=== PATIENT | female | born 1990 | race Caucasian/White ===

== ENCOUNTER 2017-11-27 22:45 | Emergency (ER) | payer BC ==
[2017-11-27] MEDS ORDERED: NS 1,000 ML IV ONE (23:08)
[2017-11-27 23:21] LABS: PLATELET COUNT 174 10^3/uL (150-400)
[2017-11-27] MEDS ORDERED: PROMETHAZINE HCL 25 MG/ML INJ IVP ONE (23:42)
[2017-11-27] MEDS ORDERED: LORazepam 2 MG/ML INJ IVP ONE (23:43)
--- NOTE | 2017-11-28 00:05 | EDPHY ---
H & P Time Seen by Provider: 11/27/17 23:06 HPI/ROS: CHIEF COMPLAINT: Vomiting HISTORY OF PRESENT ILLNESS: 27-year-old female presents to the emergency department with multiple episodes of vomiting. The patient woke up this morning at 3:00 a.m. With vomiting. She is here visiting for a wedding. She states that she has had these symptoms in the past and is typically received Compazine and Ativan. She denies abdominal pain. She does describe a mild headache. She has been told that she has "abdominal migraines". No fevers or chills. No urinary symptoms. She is currently on her menstrual period and denies . Denies chest pain or difficulty breathing. Denies abdominal pain. REVIEW OF SYSTEMS: Constitutional: No fever, no chills. Eyes: No double or blurry vision. ENT: No sore throat. Respiratory: No cough, no shortness of breath. Cardiac: No chest pain. Gastrointestinal: Vomiting as above. No abdominal pain or diarrhea. Genitourinary: No dysuria. Musculoskeletal: No neck or back pain. Skin: No rashes. Neurological: No headache. Past Medical/Surgical History: Vick's thyroiditis Social History: Visiting from [place] Smoking Status: Never smoked Physical Exam: General Appearance: Alert, no distress. Eyes: Pupils equal and round. Extraocular motions are all intact. ENT: Mouth: Mucous membranes moist. Respiratory: No wheezing, rhonchi, or rales, lungs are clear to auscultation. Cardiovascular: Regular rate and rhythm. Gastrointestinal: Abdomen is soft and nontender, no masses, no rebound or guarding, bowel sounds normal. Neurological: Alert and oriented x 3, cranial nerves II through XII grossly intact Skin: Warm and dry, no rashes. Musculoskeletal: Nontender to palpate along the cervical, thoracic or lumbar spine. Neck is supple. Extremities: Full range of motion and no peripheral edema. Psychiatric: Patient is oriented X 3, there is no agitation. Constitutional: Initial Vital Signs Temperature (C) 36.9 C 11/27/17 22:54 Heart Rate 85 11/27/17 22:54 Respiratory Rate 20 11/27/17 22:54 Blood Pressure 118/68 11/27/17 22:54 O2 Sat (%) 94 11/27/17 22:54 O2 Delivery Mode Room Air Allergies/Adverse Reactions: arythromycin Allergy (Uncoded 11/27/17 22:58) Home Medications: Medication Instructions Recorded ARMOUR THYROID 11/27/17 Medical Decision Making ED Course/Re-evaluation: 27-year-old female presents to the emergency department feeling anxious and having multiple episodes of vomiting. Laboratory studies were drawn and laboratory studies were all within normal limits. Since the patient had been given Compazine and Ativan in the past, she was given 12.5 mg of IV Phenergan and 0.5 mg of IV Ativan. 12:25 a.m. the patient was feeling extremely anxious after the medication. This is likely from the IV Phenergan. She was given 25 mg of IV Benadryl. She had no respiratory or airway involvement. 12:55 a.m. the patient was still feeling "like I want to use crawl out of my skin". The patient was given an additional 1 mg of IV Ativan. She states her nausea is better. Differential Diagnosis: Including but not limited to dehydration, electrolyte abnormality, bowel obstruction, gastritis, GERD, medication reaction Care Turn Over: Care will be turned over to Dr. Philip Galdamez for disposition and plan. - Data Points Laboratory Results: Laboratory Results 11/27/17 23:10 11/27/17 23:10 11/27/17 11/27/17 11/27/17 23:10 23:10 23:10 WBC 10.62 10^3/uL H 10^3/uL (3.80-9.50) RBC 4.67 10^6/uL 10^6/uL (4.18-5.33) Hgb 13.1 g/dL g/dL (12.6-16.3) Hct 40.5 % % (38.0-47.0) MCV 86.7 fL fL (81.5-99.8) MCH 28.1 pg pg (27.9-34.1) MCHC 32.3 g/dL L g/dL (32.4-36.7) RDW 13.7 % % (11.5-15.2) Plt Count 174 10^3/uL 10^3/uL (150-400) MPV 12.3 fL H fL (8.7-11.7) Neut % (Auto) 66.9 % % (39.3-74.2) Lymph % (Auto) 21.6 % % (15.0-45.0) [place] % (Auto) 8.7 % % (4.5-13.0) Eos % (Auto) 2.0 % % (0.6-7.6) Baso % (Auto) 0.5 % % (0.3-1.7) Nucleat RBC Rel Count 0.0 % % (0.0-0.2) Absolute Neuts (auto) 7.12 10^3/uL H 10^3/uL (1.70-6.50) Absolute Lymphs (auto) 2.29 10^3/uL 10^3/uL (1.00-3.00) Absolute Monos (auto) 0.92 10^3/uL H 10^3/uL (0.30-0.80) Absolute Eos (auto) 0.21 10^3/uL 10^3/uL (0.03-0.40) Absolute Basos (auto) 0.05 10^3/uL 10^3/uL (0.02-0.10) Absolute Nucleated RBC 0.00 10^3/uL 10^3/uL (0-0.01) Immature Gran % 0.3 % % (0.0-1.1) Immature Gran # 0.03 10^3/uL 10^3/uL (0.00-0.10) Sodium 140 mEq/L mEq/L (135-145) Potassium 4.2 mEq/L mEq/L (3.3-5.0) Chloride 102 mEq/L mEq/L (97-110) Carbon Dioxide 25 mEq/l mEq/l (22-31) Anion Gap 13 mEq/L mEq/L (8-16) BUN 15 mg/dL mg/dL (7-23) Creatinine 0.8 mg/dL mg/dL (0.6-1.0) Estimated GFR > 60 Glucose 91 mg/dL mg/dL (70-100) Calcium 9.2 mg/dL mg/dL (8.5-10.4) Beta HCG, Qual NEGATIVE Medications Given: Discontinued Medications Diphenhydramine HCl (Benadryl Injection) 25 mg IVP EDNOW ONE Stop: 11/28/17 00:23 Last Admin: 11/28/17 00:26 Dose: 25 mg Sodium Chloride (Ns) 1,000 mls @ 0 mls/hr IV ONCE ONE PRN Reason: Wide Open Stop: 11/27/17 23:09 Last Admin: 11/27/17 23:10 Dose: 1,000 mls Lorazepam (Ativan Injection) 0.5 mg IVP EDNOW ONE Stop: 11/27/17 23:44 Last Admin: 11/27/17 23:49 Dose: 0.5 mg Lorazepam (Ativan Injection) 1 mg IVP EDNOW ONE Stop: 11/28/17 00:57 Last Admin: 11/28/17 01:00 Dose: 1 mg Promethazine HCl (Phenergan) 12.5 mg IVP EDNOW ONE Stop: 11/27/17 23:43 Last Admin: 11/27/17 23:49 Dose: 12.5 mg Departure - Departure Disposition: Home, Routine, Self-Care Clinical Impression: Vomiting Qualifiers: Vomiting type: unspecified Vomiting Intractability: non-intractable Nausea presence: with nausea Qualified Code(s): R11.2 - Nausea with vomiting, unspecified Condition: Good Instructions: Acute Nausea and Vomiting (ED) Additional Instructions: Clear liquids and then slowly advance diet as tolerated. Abdominal Pain: Return to the Emergency Department immediately for increasing pain, fever, vomiting, or if not completely better in 8-12 hours. Referrals: DONI COY [Other] - As per Instructions
[2017-11-28] MEDS ORDERED: LORazepam 2 MG/ML INJ IVP ONE (00:56)
[2017-11-28 02:41] VITALS: BP 125/76
--- NOTE | 2017-12-01 14:57 | EDPHY ---
[facility] Patient Name: SANCHEZ VILLANUEVA Rpt#: [id number] Unit Number: [id number] ER Physician: Kendy FLOWER Patient Type: DEP ER Adm Date/Source: 11/27/17 EMR Discharge Date: 11/28/17 Primary Carrier: [facility] OUT OF STATE PPO EMERGENCY DEPARTMENT PROVIDER REPORT H P Time Seen by Provider: 11/27/17 23:06 HPI/ROS: CHIEF COMPLAINT: Vomiting HISTORY OF PRESENT ILLNESS: 27-year-old female presents to the emergency department with multiple episodes of vomiting. The patient woke up this morning at 3:00 a.m. With vomiting. She is here visiting for a wedding. She states that she has had these symptoms in the past and is typically received Compazine and Ativan. She denies abdominal pain. She does describe a mild headache. She has been told that she has "abdominal migraines". No fevers or chills. No urinary symptoms. She is currently on her menstrual period and denies . Denies chest pain or difficulty breathing. Denies abdominal pain. REVIEW OF SYSTEMS: Constitutional: No fever, no chills. Eyes: No double or blurry vision. ENT: No sore throat. Respiratory: No cough, no shortness of breath. Cardiac: No chest pain. Gastrointestinal: Vomiting as above. No abdominal pain or diarrhea. Genitourinary: No dysuria. Musculoskeletal: No neck or back pain. Skin: No rashes. Neurological: No headache. Past Medical/Surgical History: Vick's thyroiditis Social History: Visiting from [place] Smoking Status: Never smoked Physical Exam: General Appearance: Alert, no distress. Eyes: Pupils equal and round. Extraocular motions are all intact. ENT: Mouth: Mucous membranes moist. Respiratory: No wheezing, rhonchi, or rales, lungs are clear to auscultation. Cardiovascular: Regular rate and rhythm. Gastrointestinal: Abdomen is soft and nontender, no masses, no rebound or guarding, bowel sounds normal. Neurological: Alert and oriented x 3, cranial nerves II through XII grossly intact Skin: Warm and dry, no rashes. Musculoskeletal: Nontender to palpate along the cervical, thoracic or lumbar spine. Neck is supple. Extremities: Full range of motion and no peripheral edema. Psychiatric: Patient is oriented X 3, there is no agitation. Constitutional: Initial Vital Signs Temperature (C) 36.9 C 11/27/17 22:54 Heart Rate 85 11/27/17 22:54 Respiratory Rate 20 11/27/17 22:54 Blood Pressure 118/68 11/27/17 22:54 O2 Sat (%) 94 11/27/17 22:54 O2 Delivery Mode Room Air Allergies/Adverse Reactions: arythromycin Allergy (Uncoded 11/27/17 22:58) Home Medications: Medication Instructions Recorded ERNESTINA LEON 11/27/17 Medical Decision Making ED Course/Re-evaluation: 27-year-old female presents to the emergency department feeling anxious and having multiple episodes of vomiting. Laboratory studies were drawn and laboratory studies were all within normal limits. Since the patient had been given Compazine and Ativan in the past, she was given 12.5 mg of IV Phenergan and 0.5 mg of IV Ativan. 12:25 a.m. the patient was feeling extremely anxious after the medication. This is likely from the IV Phenergan. She was given 25 mg of IV Benadryl. She had no respiratory or airway involvement. 12:55 a.m. the patient was still feeling "like I want to use crawl out of my skin". The patient was given an additional 1 mg of IV Ativan. She states her nausea is better. Differential Diagnosis: Including but not limited to dehydration, electrolyte abnormality, bowel obstruction, gastritis, GERD, medication reaction Care Turn Over: Care will be turned over to Dr. Philip Galdamez for disposition and plan. - Data Points Laboratory Results: Laboratory Results 11/27/17 23:10 11/27/17 23:10 11/27/17 11/27/17 11/27/17 23:10 23:10 23:10 WBC 10.62 10 3/uL H 10 3/uL (3.80-9.50) RBC 4.67 10 6/uL 10 6/uL (4.18-5.33) Hgb 13.1 g/dL g/dL (12.6-16.3) Hct 40.5 % % (38.0-47.0) MCV 86.7 fL fL (81.5-99.8) MCH 28.1 pg pg (27.9-34.1) MCHC 32.3 g/dL L g/dL (32.4-36.7) RDW 13.7 % % (11.5-15.2) Plt Count 174 10 3/uL 10 3/uL (150-400) MPV 12.3 fL H fL (8.7-11.7) Neut % (Auto) 66.9 % % (39.3-74.2) Lymph % (Auto) 21.6 % % (15.0-45.0) [place] % (Auto) 8.7 % % (4.5-13.0) Eos % (Auto) 2.0 % % (0.6-7.6) Baso % (Auto) 0.5 % % (0.3-1.7) Nucleat RBC Rel Count 0.0 % % (0.0-0.2) Absolute Neuts (auto) 7.12 10 3/uL H 10 3/uL (1.70-6.50) Absolute Lymphs (auto) 2.29 10 3/uL 10 3/uL (1.00-3.00) Absolute Monos (auto) 0.92 10 3/uL H 10 3/uL (0.30-0.80) Absolute Eos (auto) 0.21 10 3/uL 10 3/uL (0.03-0.40) Absolute Basos (auto) 0.05 10 3/uL 10 3/uL (0.02-0.10) Absolute Nucleated RBC 0.00 10 3/uL 10 3/uL (0-0.01) Immature Gran % 0.3 % % (0.0-1.1) Immature Gran # 0.03 10 3/uL 10 3/uL (0.00-0.10) Sodium 140 mEq/L mEq/L (135-145) Potassium 4.2 mEq/L mEq/L (3.3-5.0) Chloride 102 mEq/L mEq/L (97-110) Carbon Dioxide 25 mEq/l mEq/l (22-31) Anion Gap 13 mEq/L mEq/L (8-16) BUN 15 mg/dL mg/dL (7-23) Creatinine 0.8 mg/dL mg/dL (0.6-1.0) Estimated GFR > 60 Glucose 91 mg/dL mg/dL (70-100) Calcium 9.2 mg/dL mg/dL (8.5-10.4) Beta HCG, Qual NEGATIVE Medications Given: Discontinued Medications Diphenhydramine HCl (Benadryl Injection) 25 mg IVP EDNOW ONE Stop: 11/28/17 00:23 Last Admin: 11/28/17 00:26 Dose: 25 mg Sodium Chloride (Ns) 1,000 mls @ 0 mls/hr IV ONCE ONE PRN Reason: Wide Open Stop: 11/27/17 23:09 Last Admin: 11/27/17 23:10 Dose: 1,000 mls Lorazepam (Ativan Injection) 0.5 mg IVP EDNOW ONE Stop: 11/27/17 23:44 Last Admin: 11/27/17 23:49 Dose: 0.5 mg Lorazepam (Ativan Injection) 1 mg IVP EDNOW ONE Stop: 11/28/17 00:57 Last Admin: 11/28/17 01:00 Dose: 1 mg Promethazine HCl (Phenergan) 12.5 mg IVP EDNOW ONE Stop: 11/27/17 23:43 Last Admin: 11/27/17 23:49 Dose: 12.5 mg Departure - Departure Disposition: Home, Routine, Self-Care Clinical Impression: Vomiting Qualifiers: Vomiting type: unspecified Vomiting Intractability: non-intractable Nausea presence: with nausea Qualified Code(s): R11.2 - Nausea with vomiting, unspecified Condition: Good Instructions: Acute Nausea and Vomiting (ED) Additional Instructions: Clear liquids and then slowly advance diet as tolerated. Abdominal Pain: Return to the Emergency Department immediately for increasing pain, fever, vomiting, or if not completely better in 8-12 hours. Referrals: DONI COY [Other] - As per Instructions *This report may have been compiled using a voice recognition system, and might contain typographical errors and blanks.* Kendy Galdamez MD 11/28/17 0113 <Electronically signed by Kendy FLOWER> 11/30/17 0812 <Electronically signed by Philip Galdamez MD> T: MIGUEL 11/28/174 CC: PCP Not In, Dictionary
== END 2017-11-28 02:41 | disposition home or self-care (01) ==
DX: R11.2 Nausea with vomiting, unspecified (principal)
CPT/HCPCS: 96374; J1200; J2060; J2550